=== PATIENT | male | born 1960 | race African-American/Black ===

== ENCOUNTER 2016-12-09 12:03 | Inpatient (IN) | payer MEDICARE, OTHER ==
[~2016-12-09] VITALS: Ht 185.4 cm; Wt 88.5 kg
[2016-12-09] MEDS ORDERED: DEXTROSE 50% WATER 50ML SYRINGE IV ONE ×3 (12:16→15:15)
[2016-12-09 14:36] LABS: BASOPHILS % 0.4 % (0.0-2.0); EOSINOPHILS % 0.5 % (0.0-5.0); HEMATOCRIT. 26.3 % (42.0-52.0); HEMOGLOBIN. 8.4 g/dL (14.0-18.0); LYMPHOCYTES % 13.7 % (20.0-50.0); MEAN CORPUSCULAR HEMOGLOBIN 26.9 pg (28.0-32.0); MEAN CORPUSCULAR VOLUME 83.8 fL (80.0-94.0); MEAN PLATELET VOLUME 7.2 fl (7.4-10.4); NEUTROPHILS % 82.4 % (40.0-76.0); PLATELET 389 x1000/uL (130-400); RED BLOOD CELL COUNT 3.14 mill/uL (4.7-6.1); RED CELL DISTRIBUTION WIDTH 19.3 % (11.6-14.6)
[2016-12-09 14:40] LABS: INR 1.1; PROTHROMBIN TIME 11.1 sec
[2016-12-09 14:50] LABS: PARTIAL THROMBOPLASTIN TIME > 200.0 sec (24.0-34.0)
[2016-12-09 14:51] LABS: CARBON DIOXIDE 33 mEq/L (21-32); CHLORIDE 101 mEq/L (98-107); TROPONIN I 0.16 ng/mL (0.00-0.04)
[2016-12-09] MEDS ORDERED: SODIUM CHLORIDE 0.9% 1,000 ML IV ONE (15:45)
[2016-12-09] MEDS ORDERED: PNEUMOCOCCAL 23-VAL P-SAC VAC 0.5 ML IM ONE (19:00)
[2016-12-09] MEDS ORDERED: HYDROCODONE/ACETAMINOPHEN 5/325MG TABLET PO PRN (20:45)
[2016-12-09] MEDS ORDERED: IPRATROPIUM/ALBUTEROL 0.5-3(2.5)MG/3ML NEB INH PRN (21:00)
[2016-12-09] MEDS ORDERED: ACETAMINOPHEN 325MG TABLET PO PRN (21:00)
[2016-12-09] MEDS ORDERED: ONDANSETRON HCL 4MG/2ML VIAL IV PRN (21:00)
[2016-12-09] MEDS ORDERED: CLONIDINE 0.1MG TABLET PO PRN (21:00)
[2016-12-09] MEDS: EPOETIN ALFA 10000UNITS/ML VIAL SUBCUT SCH (22:16)
[2016-12-09] MEDS: HYDROCODONE/ACETAMINOPHEN 5/325MG TABLET PO PRN (22:24)
[2016-12-10] MEDS: HYDROCODONE/ACETAMINOPHEN 5/325MG TABLET PO PRN ×4 (03:36→23:50)
[2016-12-10] MEDS: BLOOD SUGAR DIAGNOSTIC STRIP TEST SCH ×6 (04:33→20:00)
[2016-12-10 06:44] LABS: CARBON DIOXIDE 31 mEq/L (21-32); CHLORIDE 100 mEq/L (98-107); PHOSPHORUS 2.5 mg/dL (2.5-4.9); T4 FREE 1.03 ng/dL (0.76-1.46)
[2016-12-10 06:50] LABS: TROPONIN I 0.14 ng/mL (0.00-0.04)
[2016-12-10 07:03] LABS: BASOPHILS % 0.7 % (0.0-2.0); EOSINOPHILS % 0.9 % (0.0-5.0); HEMATOCRIT. 22.6 % (42.0-52.0); HEMOGLOBIN. 7.4 g/dL (14.0-18.0); LYMPHOCYTES % 20.1 % (20.0-50.0); MEAN CORPUSCULAR HEMOGLOBIN 27.1 pg (28.0-32.0); MEAN CORPUSCULAR VOLUME 82.8 fL (80.0-94.0); MONOCYTES % 2.2 % (2.0-8.0); NEUTROPHILS % 76.1 % (40.0-76.0); PLATELET 333 x1000/uL (130-400); RED BLOOD CELL COUNT 2.73 mill/uL (4.7-6.1); RED CELL DISTRIBUTION WIDTH 19.1 % (11.6-14.6)
[2016-12-10] MEDS ORDERED: SEVE800T8 PO (16:08)
[2016-12-10] MEDS ORDERED: MEGE400O PO (16:08)
[2016-12-10] MEDS ORDERED: AMLO10TA80 PO (16:08)
[2016-12-10] MEDS ORDERED: SIMV40TA5 PO (16:08)
[2016-12-10] MEDS ORDERED: CARB-32 PO (16:13)
[2016-12-10] MEDS ORDERED: MONT10TA24 PO (16:13)
[2016-12-10] MEDS ORDERED: CLON1TAB4 PO (16:13)
[2016-12-10] MEDS ORDERED: HYDR-519 PO (16:13)
[2016-12-10] MEDS ORDERED: METH-375 PO (16:13)
[2016-12-10] MEDS ORDERED: GLYB2.5T4 PO (16:13)
[2016-12-11] MEDS: BLOOD SUGAR DIAGNOSTIC STRIP TEST SCH ×6 (04:50→20:55)
[2016-12-11 06:18] LABS: BASOPHILS % 0.8 % (0.0-2.0); EOSINOPHILS % 1.7 % (0.0-5.0); HEMATOCRIT. 25.7 % (42.0-52.0); LYMPHOCYTES % 28.5 % (20.0-50.0); MEAN CORPUSCULAR HEMOGLOBIN 28.9 pg (28.0-32.0); MEAN CORPUSCULAR VOLUME 83.9 fL (80.0-94.0); MEAN PLATELET VOLUME 7.5 fl (7.4-10.4); MONOCYTES % 2.5 % (2.0-8.0); NEUTROPHILS % 66.5 % (40.0-76.0); PLATELET 305 x1000/uL (130-400); RED BLOOD CELL COUNT 3.07 mill/uL (4.7-6.1); RED CELL DISTRIBUTION WIDTH 17.8 % (11.6-14.6)
[2016-12-11 07:01] LABS: HEMOGLOBIN. 8.9 g/dL (14.0-18.0)
[2016-12-11] MEDS: LIDOCAINE 5% PATCH TOP SCH (13:30)
[2016-12-11] MEDS: EPOETIN ALFA 10000UNITS/ML VIAL SUBCUT SCH (20:51)
[2016-12-12 06:51] LABS: BASOPHILS % 0.6 % (0.0-2.0); EOSINOPHILS % 1.2 % (0.0-5.0); HEMATOCRIT. 27.1 % (42.0-52.0); MEAN CORPUSCULAR HEMOGLOBIN 27.6 pg (28.0-32.0); MEAN CORPUSCULAR VOLUME 83.3 fL (80.0-94.0); MONOCYTES % 2.1 % (2.0-8.0); NEUTROPHILS % 76.1 % (40.0-76.0); RED BLOOD CELL COUNT 3.26 mill/uL (4.7-6.1); RED CELL DISTRIBUTION WIDTH 17.5 % (11.6-14.6)
[2016-12-12] MEDS: BLOOD SUGAR DIAGNOSTIC STRIP TEST SCH ×4 (07:30→21:00)
[2016-12-12] MEDS ORDERED: SODIUM POLYSTYRENE SULFONATE 15 G/60 ML BOT PO SCH (09:15)
[2016-12-12] MEDS: LIDOCAINE 5% PATCH TOP SCH (09:40)
[2016-12-12 09:49] LABS: PLATELET 167 x1000/uL (130-400)
[2016-12-12] MEDS: HYDROCODONE/ACETAMINOPHEN 5/325MG TABLET PO PRN ×2 (13:31→22:56)
[2016-12-13 06:53] LABS: BASOPHILS % 0.7 % (0.0-2.0); EOSINOPHILS % 2.2 % (0.0-5.0); HEMATOCRIT. 24.9 % (42.0-52.0); HEMOGLOBIN. 8.2 g/dL (14.0-18.0); LYMPHOCYTES % 22.8 % (20.0-50.0); MEAN CORPUSCULAR HEMOGLOBIN 27.5 pg (28.0-32.0); MEAN CORPUSCULAR VOLUME 83.3 fL (80.0-94.0); MEAN PLATELET VOLUME 7.8 fl (7.4-10.4); MONOCYTES % 2.4 % (2.0-8.0); NEUTROPHILS % 71.9 % (40.0-76.0); PLATELET 267 x1000/uL (130-400); RED BLOOD CELL COUNT 2.98 mill/uL (4.7-6.1); RED CELL DISTRIBUTION WIDTH 17.4 % (11.6-14.6)
[2016-12-13] MEDS: BLOOD SUGAR DIAGNOSTIC STRIP TEST SCH ×4 (07:55→20:50)
[2016-12-13] MEDS: LIDOCAINE 5% PATCH TOP SCH (08:18)
[2016-12-13] MEDS: HYDROCODONE/ACETAMINOPHEN 5/325MG TABLET PO PRN ×2 (08:19→20:55)
[2016-12-13 09:08] LABS: A/G RATIO 1.2 (0.7-1.7); ALPHA-1-GLOBULIN 0.3 g/dL (0.0-0.4); ALPHA-2-GLOBULIN 1.1 g/dL (0.4-1.0); BETA GLOBULIN 0.7 g/dL (0.7-1.3); GAMMA GLOBULINS 0.4 g/dL (0.4-1.8); GLOBULIN TOTAL 2.5 g/dL (2.2-3.9); M-SPIKE Not Observed g/dL (Not Observed); TOTAL PROTEIN SERUM 5.5 g/dL (6.0-8.5)
[2016-12-14] MEDS: HYDROCODONE/ACETAMINOPHEN 5/325MG TABLET PO PRN ×2 (06:22→16:49)
[2016-12-14 07:14] LABS: BASOPHILS % 0.9 % (0.0-2.0); EOSINOPHILS % 1.5 % (0.0-5.0); HEMATOCRIT. 25.2 % (42.0-52.0); HEMOGLOBIN. 8.2 g/dL (14.0-18.0); LYMPHOCYTES % 26.4 % (20.0-50.0); MEAN CORPUSCULAR HEMOGLOBIN 27.5 pg (28.0-32.0); MEAN CORPUSCULAR VOLUME 84.2 fL (80.0-94.0); MEAN PLATELET VOLUME 7.8 fl (7.4-10.4); MONOCYTES % 2.2 % (2.0-8.0); PLATELET 255 x1000/uL (130-400); RED BLOOD CELL COUNT 2.99 mill/uL (4.7-6.1); RED CELL DISTRIBUTION WIDTH 17.4 % (11.6-14.6)
[2016-12-14] MEDS: BLOOD SUGAR DIAGNOSTIC STRIP TEST SCH ×4 (07:53→21:04)
[2016-12-14] MEDS: LIDOCAINE 5% PATCH TOP SCH (08:56)
[2016-12-14] MEDS: EPOETIN ALFA 10000UNITS/ML VIAL SUBCUT SCH (21:04)
[2016-12-15 05:55] LABS: PHOSPHORUS 4.4 mg/dL (2.5-4.9)
[2016-12-15 07:02] LABS: BASOPHILS % 0.6 % (0.0-2.0); EOSINOPHILS % 1.6 % (0.0-5.0); HEMATOCRIT. 22.5 % (42.0-52.0); HEMOGLOBIN. 7.4 g/dL (14.0-18.0); LYMPHOCYTES % 28.4 % (20.0-50.0); MEAN CORPUSCULAR HEMOGLOBIN 27.6 pg (28.0-32.0); MEAN CORPUSCULAR VOLUME 84.4 fL (80.0-94.0); MONOCYTES % 2.7 % (2.0-8.0); NEUTROPHILS % 66.7 % (40.0-76.0); PLATELET 257 x1000/uL (130-400); RED BLOOD CELL COUNT 2.67 mill/uL (4.7-6.1); RED CELL DISTRIBUTION WIDTH 17.6 % (11.6-14.6)
[2016-12-15] MEDS: BLOOD SUGAR DIAGNOSTIC STRIP TEST SCH ×2 (07:30→12:27)
[2016-12-15 17:06] VITALS: BP 132/77
[2016-12-16 10:07] LABS: VITAMIN D 25-OH 7.6 ng/mL (30.0-100.0)
[2016-12-17 12:21] LABS: VITAMIN D 1-25 DIHYDROXY < 5.0 pg/mL (19.9-79.3)
== END 2016-12-15 18:40 | DRG 70 ==
LOC: ER 12:28 → INTOOBSV 15:48 → OBSVTOIN 15:48 → 5EST 15:48 → EDBEDREQ 15:50 → CANRESERV 16:53 → ENRESERV 16:53
PROVIDERS: ADMIT Internal Medicine; ATTEND Internal Medicine
PROC: 5A1D60Z (ICD-10-PCS; principal; 2016-12-09)
PROC: 30233N1 Transfusion of Nonautologous Red Blood Cells into Peripheral Vein, Percutaneous Approach (ICD-10-PCS; 2016-12-10)
DX: G93.41 Metabolic encephalopathy (principal); N18.6 End stage renal disease; I12.0 Hypertensive chronic kidney disease with stage 5 chronic kidney disease or end stage renal disease; M84.48XA Pathological fracture, other site, initial encounter for fracture; E11.22 Type 2 diabetes mellitus with diabetic chronic kidney disease; D64.9 Anemia, unspecified; E11.649 Type 2 diabetes mellitus with hypoglycemia without coma; E83.52 Hypercalcemia; G89.29 Other chronic pain; Z99.2 Dependence on renal dialysis; Z87.820 Personal history of traumatic brain injury; Z87.891 Personal history of nicotine dependence
CPT/HCPCS: 36415; 71010; 72100; 72148; 80048; 80053; 82306; 82652; 82962; 83690; 83970; 84100; 84153; 84155; 84165; 84439; 84443; 84484; 85025; 85610; 85730; 86850; 86900; 86920; 90732; 93005; 97163; 97530; C1893; J0885; J7030; J7050; P9016